=== PATIENT | male | born 1980 | race Caucasian/White ===

== ENCOUNTER 2018-01-27 00:15 | Emergency (ER) | payer MEDICAID ==
[~2018-01-27] VITALS: Ht 170.2 cm; Wt 77.5 kg
[2018-01-27 00:17] VITALS: BP 129/82
[2018-01-27] MEDS ORDERED: IBUPROFEN 800 MG TABLET ONE (01:13)
[2018-01-27] MEDS ORDERED: IBUPROFEN 200 MG TABLET PO ONE (01:30)
== END 2018-01-27 02:53 | disposition home or self-care (01) ==
LOC: ED 02:20
DX: R05 Cough (principal)
CPT/HCPCS: 71046; 99284

== ENCOUNTER 2020-07-26 10:22 | Emergency (ER) | payer BC, MEDICAID ==
[~2020-07-26] VITALS: Ht 172.7 cm; Wt 80.7 kg
[2020-07-26 10:25] VITALS: BP 147/97
== END 2020-07-26 11:46 | disposition home or self-care (01) ==
LOC: ED 10:53
DX: B34.9 Viral infection, unspecified (principal); Z20.822 Contact with and (suspected) exposure to COVID-19; R53.83 Other fatigue; F17.200 Nicotine dependence, unspecified, uncomplicated
CPT/HCPCS: 71045; 87635; 99284